=== PATIENT | female | born 1995 | race Two or more races ===

== ENCOUNTER 2016-09-07 16:27 | Emergency (ER) | payer OTHER ==
[~2016-09-07] VITALS: Ht 160 cm; Wt 70.5 kg
[2016-09-07 16:28] VITALS: BP 123/82
[2016-09-08] MEDS ORDERED: CLEO300C2 PO (12:39)
== END 2016-09-07 19:45 | disposition left against medical advice (07) ==
LOC: M ED 17:35
DX: R07.0 Pain in throat (principal)

== ENCOUNTER 2016-09-08 10:02 | Emergency (ER) | payer OTHER ==
[~2016-09-08] VITALS: Ht 160 cm; Wt 69.5 kg
[2016-09-08] MEDS ORDERED: KETOROLAC 30 MG/ML VIAL (J1885) IV ONE (11:00)
[2016-09-08] MEDS ORDERED: dexameTHASONE 20 MG/5 ML VIAL (J1100) IV ONE (11:00)
[2016-09-08] MEDS ORDERED: CLINDAMYCIN 900 MG in APPROPRIATE DILUENT 1 EA IV ONE (11:00)
[2016-09-08 11:24] LABS: BASO # 0.1 K/mm3 (0.0-0.2); BASO % 0.5 % (0.0-1.0); EOS # 0.2 K/mm3 (0.0-0.50); EOS % 0.8 % (0.0-3.0); LARGE UNSTAINED CELL # 0.2 K/mm3 (0.0-0.4); LARGE UNSTAINED CELL % 1.1 % (0.0-4.0); LYMPH % 10.8 % (24.0-44.0); MEAN CORPUSCULAR HGB CONC 33.7 g/dl (32.0-36.5); MEAN CORPUSCULAR VOLUME 92.1 fl (80.0-96.0); MONO % 5.7 % (0.0-5.0); NEUTROPHILS # 14.7 K/mm3 (1.8-7.7); PLATELET COUNT, AUTOMATED 228 k/mm3 (150-450); WHITE BLOOD COUNT 18.1 K/mm3 (4.0-10.0)
[2016-09-08 11:37] LABS: ANION GAP 5 MEQ/L (8-16); BLOOD UREA NITROGEN 8 MG/DL (7-18); CALCIUM LEVEL 9.3 MG/DL (8.5-10.1); CARBON DIOXIDE LEVEL 29 MEQ/L (21-32); CHLORIDE LEVEL 101 MEQ/L (98-107); CREATININE FOR GFR 0.93 MG/DL (0.55-1.02); GLOMERULAR FILTRATION RATE > 60.0 (>60); GLUCOSE, FASTING 101 MG/DL (70-105); POTASSIUM SERUM 3.8 MEQ/L (3.5-5.1); SODIUM LEVEL 135 MEQ/L (136-145)
[2016-09-08] MEDS ORDERED: ISOVUE-370 76% 100ML VIAL (Q9967) As Ordered ONE (11:40)
[2016-09-08] MEDS ORDERED: CLEO300C2 PO (12:39)
[2016-09-08 12:44] VITALS: BP 122/62
--- NOTE | 2016-09-08 13:17 | REP ---
REASON FOR EXAM: Right peritonsillar abscess suspected. PRIORS: None. CONTRAST UTILIZED: 75 mL of Isovue 370. There is bilateral tonsillar swelling right greater than left seen with slight tonsillar enhancement but no abnormal tonsillar or peritonsillar air fluid levels that would be consistent with an abscess formation. The suprahyoid, parapharyngeal, retropharyngeal, pharyngomucosal, carotid, skimmer scoop operator and parotid spaces are within normal limits. The prevertebral and perispinal components of the perivertebral space are within normal limits. In the intrahyoid neck, the afore mentioned neck spaces along with the posterior cervical space are within normal limits. There is no evidence of cervical lymphadenopathy. IMPRESSION: There is bilateral tonsillar swelling, as described above, causing mild airway compromise but there is no evidence of an abscess at this time. Incidental note is made of a small 7 mm sized area of enhancement in the left skimmer scoop operator space at the end of a small vessel most consistent with a venous malformation. Signed by Cam Sheikh DO 09/08/2016 04:01 P
== END 2016-09-08 12:45 | disposition home or self-care (01) ==
LOC: M ED 10:35
DX: R07.0 Pain in throat (principal)
CPT/HCPCS: 70491; 80048; 85025; 86140; 87880; 96365; 96375; 99283; J1100; J1885; Q9967